=== PATIENT | male | born 1980 | race Caucasian/White ===

== ENCOUNTER 2021-10-08 09:16 | Outpatient (REF) | payer OTHER, SELFPAY ==
--- NOTE | ~2021-10-08 | FL_ITS ---
EXAMINATION: XR FLUOROSCOPY UPPER GI WITH AIR CLINICAL INFORMATION: Gastroesophageal reflux disease COMPARISON: None TECHNIQUE: After effervescent granules, realtime fluoroscopy with multiple fluoroscopic spot images were obtained as the patient swallowed thick and thin barium in prone and upright positions. FINDINGS: The patient initiated swallowing normally. There is normal esophageal peristalsis. No fixed esophageal mucosal abnormality to suggest a stricture or mass no hiatal hernia seen. Normal appearance of the gastric mucosa. No fold thickening or ulcer seen. The gastric antrum and duodenal bulb and sweep are normal. There is normal gastric emptying visualized. No gastroesophageal reflux observed spontaneously or elicited with Valsalva maneuver. FLUOROSCOPY TIME: 2.5 minutes DOSE AREA PRODUCT: 21.591 Gy-cm2 (escamilla-centimeter squared) FL/FL upper GI w air IMPRESSION: Normal upper GI series. No gastroesophageal reflux observed spontaneously or elicited with Valsalva maneuver.
== END 2021-10-08 09:17 | disposition home or self-care (01) ==
LOC: HO.XRAY 09:16
PROVIDERS: PCP Internal Medicine Gastroenterology; Visit Provider Internal Medicine Gastroenterology
DX: Z13.89 Encounter for screening for other disorder (principal)
CPT/HCPCS: 74246